=== PATIENT | female | born 1960 | race Caucasian/White ===

== ENCOUNTER 2020-07-23 13:36 | Emergency (ER) | payer MEDICARE, SELFPAY ==
--- NOTE | ~2020-07-23 | CT_ITS ---
EXAMINATION: CT cervical spine wo con EXAM DATE: 07/23/2020 16:03 INDICATION: Fall neck pain after fall yesterday, surg 10 yrs ago. TECHNIQUE: Spiral CT of the cervical spine was performed without contrast. Axial images were reviewe d. Coronal and sagittal reformatted images were also reviewed. The dose-length product (DLP) for thi s examination was 130.67 mGy-cm. The exposure was tailored according to patient size (auto mA exposu re control), and iterative reconstruction (ASIR) was used as additional dose reduction technique. Th ere is no prior study for comparison. FINDINGS: C6 vertebral body has lucency of the pars bilaterally. There is also sclerosis in both of t hese pedicles. Would favor chronic spondylolysis over acute fractures. There is intact cervical fusion C4-6, with anterior plate, supporting screws, interbody devices or abril ne grafts. There is moderate to severe disc disease at 3-4 and C6-7. The odontoid process is intact. Pre-dens space is normal. Prevertebral soft tissue is normal. There are no soft tissue abnormalit ies identified. There is no disc space widening or traumatic vertebral body subluxation suspected. Moderate left temporomandibular joint primary osteoarthritis. A detailed level by level evaluation o f spondylosis can be added as addendum if requested. IMPRESSION: Bilateral C6 pars defects, most likely chronic spondylolysis given the sclerosis. No dist raction or subluxation at this level. Intact fusion C4-6. No acute findings suspected. Reviewed, dictated and finalized at location B. TENDER IMPRESSION: Bilateral C6 pars defects, most likely chronic spondylolysis given the sclerosis. No distraction or subluxation at this level. Intact fusion C4-6 . No acute findings suspected.
--- NOTE | ~2020-07-23 | CT_ITS ---
EXAMINATION: CT lumbar spine wo con DATE: 07/23/2020 16:03 INDICATION: Low back pain. Fall. TECHNIQUE: Computed tomography (CT) of the lumbar spine was performed without intravenous contrast. A utomated exposure control and iterative reconstruction technique were employed. The dose-length produ ct was 187.16 mGy-cm. COMPARISON: None FINDINGS: There is 18 degrees dextroscoliosis of thoracolumbar spine. Vertebral body heights are norm al. There is mildly decreased disc height at L3-L4 and moderately decreased disc height at L5-S1. The following disc levels are specifically discussed: L1-L2: The disc is bulging. There is mild bilateral facet joint osteoarthritis. There is no neural fo raminal stenosis. There is mild central canal stenosis. L2-L3: The disc is bulging. There is mild bilateral facet joint osteoarthritis. There is mild bilater al neural foraminal stenosis. There is mild central canal stenosis. L3-L4: The disc is bulging. There is mild bilateral facet joint osteoarthritis. There is mild right a nd moderate left neural foraminal stenosis. There is mild central canal stenosis. L4-L5: The disc is bulging. There is mild bilateral facet joint osteoarthritis. There is mild bilater al neural foraminal stenosis. There is mild central canal stenosis. L5-S1: The disc is bulging. There is mild bilateral facet joint osteoarthritis. There is mild bilater al neural foraminal stenosis. There is mild central canal stenosis. IMPRESSION: 1. No fracture. 2. Moderate lumbar spondylosis. 3. Thoracolumbar dextroscoliosis. Reviewed, dictated and finalized at location A. WORK FINISHER
--- NOTE | ~2020-07-23 | XR_ITS ---
XR forearm LT 2V 07/23/2020 15:59 Indication: Left arm pain after recent fall Procedure: 2 views left forearm Comparison: No prior studies for comparison. Findings: No fracture or traumatic malalignment. There is a side plate and screws transfixing the dis leah radius. No focal soft tissue abnormality. No foreign bodies. Impression: 1: No acute fracture. Reviewed, dictated and finalized at location A. CASE TRIMMER Impression: 1: No acute fracture.
--- NOTE | ~2020-07-23 | CT_ITS ---
EXAMINATION: CT knee LT wo con DATE: 07/23/2020 16:01 INDICATION: Left knee pain. Fall. TECHNIQUE: Computed tomography (CT) of the left knee was performed without intravenous contrast. Auto mated exposure control and iterative reconstruction technique were employed. The dose-length product was 436.90 mGy-cm. COMPARISON: None FINDINGS: Bone alignment is normal. No fracture. There is a benign bone island in distal femur. There is mild osteoarthritis of patellofemoral compartment. There are tiny calcifications in posterior cru ciate ligament distally. No knee joint effusion. IMPRESSION: 1. Mild left knee osteoarthritis. Reviewed, dictated and finalized at location A. 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
[2020-07-23 13:45] VITALS: BP 123/75; PULSE 65; RESP 15; TEMP 36.9; O2SAT 98
[2020-07-23] MEDS: DEXAMETHASONE 4 MG TABLET 12 MG PO (15:11)
[2020-07-23] MEDS: KETOROLAC (*BKC) 60 MG/2 ML VIAL IM (15:11)
[2020-07-23] MEDS: BACLOFEN 10 MG TABLET 20 MG PO (15:11)
--- NOTE | 2020-07-23 16:05 | ED.FALL ---
HPI - Fall General Chief Complaint: Fall Stated Complaint: injury to left knee and left from fall Time Seen by Provider: 07/23/20 13:55 Source: patient and family Mode of arrival: ambulatory Limitations: no limitations History of Present Illness HPI Narrative: Patient states she fell yesterday at [facility]. She is worried she hurt her left arm, and left knee after the fall. She has perviously had surgery on her left forearm she says. She tells me she has hardware in that wrist. She also complains of pain in her cervical spine, and in her L-S spine after the fall. She states she never really was hurting badly, or she would have came to be seen yesterday. But she states she wanted to be checked out, since the fall was at [facility]. She thinks they were negligent, and tells me she fell, because the floor was wet. Onset (ago): day(s) Fall from: standing Fall witnessed: no Place fall occurred: other Loss of consciousness: none Prolonged down time: no Symptoms prior to fall: other (chronic pain in cervical spine, low lumbar spine she says, left wrist and left knee. Sjhe seems to have the most difficulty in the left knee. ) Context: tripped/slipped and other (water on the floor patient says) Location of injury: other (left forearm, cervical spine, left knee, lumbar spine. ) Severity: similar to previous episodes Severity scale (1-10): 2 Quality: burning and sharp Associated symptoms (after fall): neck pain Related Data Home Medications Medication Instructions Recorded Confirmed citalopram 10 mg PO DAILY 07/23/20 07/23/20 diazepam [Valium] 2 mg PO DAILY 07/23/20 07/23/20 gabapentin 100 mg PO TID 07/23/20 07/23/20 hydrocodone-acetaminophen [[place]] 1 tablet PO Q4H PRN 07/23/20 07/23/20 meloxicam 15 mg PO DAILY 07/23/20 07/23/20 methocarbamol 500 mg PO HS 07/23/20 07/23/20 Allergies Allergy/AdvReac Type Severity Reaction Status Date / Time No Known Allergies Allergy Verified 07/23/20 15:15 Review of Systems Constitutional: Constitutional: Reports no additional constitutional complaints Eyes: Eyes: Reports no additional eye complaints ENT: Reports system reviewed and no additional complaints, except as documented Cardiovascular: Cardiovascular: Reports no additional cardiovascular complaints Respiratory: Respiratory: Reports no additional respiratory complaints Gastrointestinal: Gastrointestinal: Reports no additional gastrointestinal complaints Genitourinary: Genitourinary: Reports no additional female genitourinary complaints Musculoskeletal: Musculoskeletal: Reports no additional musculoskeletal complaints Integumentary/Breasts: Skin/Breast: Reports system reviewed and no additional complaints, except as docu Neurologic: Reports system reviewed and no additional complaints, except as documented Psychiatric: Psychiatric: Reports no additional psychiatric complaints Endocrine: Endocrine: Reports no additional endocrine complaints Hematologic/Lymphatic: Hematologic/Lymphatic: Reports no additional hematologic/lymphatic complaints Allergic/Immunologic: Allergic/Immunologic: Reports no additional allergic/immunologic complaints [facility] Past Medical History Medical History (Updated 07/24/20 @ 03:48 by Ap Trimble MD) Cervical vertebral fusion No significant medical problems Surgical History Surgical History (Updated 07/24/20 @ 03:48 by Ap Trimble MD) H/O wrist surgery Family History Family History (Updated 07/24/20 @ 03:50 by Ap Trimble MD) Mother Morbidly obese Father Throat cancer Social History Social History (Updated 07/24/20 @ 03:51 by Ap Trimble MD) Smoking packs per day: 0.5 Smoking cigarettes per day: 10.0 Smoking status: Current every day smoker Tobacco type: cigarettes Exam Const: General: no acute distress Orientation/consciousness: patient oriented x3 HENMT: Head: normal to inspection Ears: external ears normal and TM's normal bilaterally General nose
[2020-07-23 16:46] VITALS: RESP 16
== END 2020-07-23 16:47 | disposition home or self-care (01) ==
PROVIDERS: Emergency Provider Emergency Medicine
DX: M54.2 Cervicalgia (principal); W19.XXXA Unspecified fall, initial encounter
CPT/HCPCS: 72125; 72131; 73090; 73700; 96372; 99283; 99284; A9270; J1885; J8540